=== PATIENT | female | born 1965 | race Caucasian/White ===

== ENCOUNTER 2016-06-22 23:34 | Observation (INO) | payer BC ==
[~2016-06-22] VITALS: Ht 167.6 cm; Wt 128.1 kg
[~2016-06-22 23:34] MED LIST: CELEBREX DPS200 MG PO; GLUCOPHAGE-DPS500 MG PO; GLUCOTROL DPS10 MG PO; INVOKANA300 MG PO; ISOPTIN SR180 MG PO; LANTUS100 UNITS/ SQ; LASIX DPS40 MG PO; LEVOTHYROXINE25 MCG PO; LUNESTA2 MG PO; NEXIUM40 MG PO; PAROXETINE HCL40 MG PO; PRAVASTATIN SOD40 MG PO; RIZATRIPTAN10 M1 SL; TOPROL XL DPS25 MG PO; ULTRAM DPS50 MG PO; ZANAFLEX4 MG PO; ZESTRIL DPS20 MG PO; [UNRECOGNIZED DRUG - OTHER] PO
--- NOTE | 2016-06-23 06:04 | ER ---
ADMIT: 06/23/2016 RM/LOC: 423 [facility] MR#: [id number] [address] [address] DANISHA DIAZ [address] [place] [address] Emergency Room Report SEX: F AGE: 51 : 1965 DATE: 06/23/2016 HISTORY OF PRESENT ILLNESS: The patient is a 51-year-old female with past medical history of hypertension; diabetes; SVT, status post ablation and hypothyroidism, who came to the ER with chief complaint of palpitation. The patient states that she was asleep when she had palpitation, which woke her up from sleep and palpitation continues in the ER. The patient states last year she had ablation, which resolved the SVT and palpitation attacks and since then, she had never experienced palpitation and she had no documented SVT or other arrhythmias. The patient states since then, she had multiple episodes of palpitation, but she never followed it up. PHYSICAL EXAMINATION: GENERAL: In the ER, the patient was in moderate distress. Alert and oriented to person, place, and time and talking in full sentences. VITAL SIGNS: Heart rate was 180 and O2 saturation was 99% on room air, blood pressure was holding in 145 over 80s. EKG was done, was suggestive of supraventricular tachycardia, the patient received a dose of adenosine, which could not convert the rhythm. The patient received the 2nd dose of adenosine 12 mg, which maintained the sinus rhythm with a rate of 85 to 90s. Cardiac enzymes were negative. Chest x-ray was noncontributory. The rest of the labs were noncontributory except for elevated TSH. The patient is already on Synthroid. Considering this is the 1st documented SVT after the ablation a year ago, the patient was admitted to the Family Medicine for further followups and treatments. Eugene Corbett MD/ simeon JOB #: [id number] CC: Tani Kinney MD, Attending Physician Tani Kinney MD, Family Physician
[2016-06-23] MEDS ORDERED: SYNTHROID DP0.175 MG PO (21:11)
[2016-06-23] MEDS ORDERED: GLUCOTROL DPS10 MG PO (21:11)
[2016-06-23] MEDS ORDERED: LANTUS100 UNITS/ SQ (21:11)
[2016-06-23] MEDS ORDERED: DEMADEX20 MG PO (21:11)
[2016-06-23] MEDS ORDERED: FARXIGA10 MG PO (21:11)
[2016-06-23] MEDS ORDERED: GLUCOPHAGE-DPS500 MG PO (21:11)
[2016-06-23] MEDS ORDERED: ISOPTIN SR180 MG PO (21:12)
[2016-06-23] MEDS ORDERED: PRAVACHOL40 MG PO (21:12)
[2016-06-23] MEDS ORDERED: ZESTRIL DPS20 MG PO (21:12)
[2016-06-23] MEDS ORDERED: FLEXERIL-DPS10 MG PO (21:12)
[2016-06-23] MEDS ORDERED: NEXIUM40 MG PO (21:12)
[2016-06-23] MEDS ORDERED: ASA CHILDREN'S81 MG PO (21:12)
[2016-06-23] MEDS ORDERED: PAXIL40 MG PO (21:12)
[2016-06-23] MEDS ORDERED: TYLENOL DPS325 MG PO (21:13)
[2016-06-23] MEDS ORDERED: VITAMIN D-32000 UNI1 PO (21:13)
[2016-06-23] MEDS ORDERED: TAMBOCOR DPS50 MG PO (21:13)
--- NOTE | 2016-06-28 15:07 | CO ---
ADMIT: 06/23/2016 RM/LOC: [facility] MR#: [id number] [address] [address] DANISHA DIAZ [address] [place] [address] Consultation SEX: F AGE: 51 : 1965 DATE OF CONSULTATION: 06/23/2016 ATTENDING PHYSICIAN: Tani Kinney CONSULTING PHYSICIAN: MD Joan Santacruz PA Student dictating for Dale Ramos MD HISTORY OF PRESENT ILLNESS: This is a pleasant 51-year-old female whom I had the opportunity to consult in Cardiology regarding SVT. The patient was seen in the ER last night at 11:30 p.m. because she was awoken from her sleep with heart palpitations, epigastric pressure, and sensation of heavy limbs. The patient has a history of SVT, so she tried vagal maneuvers by bearing down, but this provided little success. 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 The patient admits that her SVT had progressively been getting longer. It started Sunday night lasting from 10:15 p.m. to 5 a.m. in the morning. She admits that after her ablation a year ago, she had not any problems until this last January. The patient has a history of SVT, type 2 diabetes, hypertension, hypothyroidism, dyslipidemia, and heartburn. The patient admits that she was tested for sleep apnea 4 years ago. PAST MEDICAL HISTORY: SVT, type 2 diabetes, hypertension, hypothyroidism, dyslipidemia, DUB, and heartburn. PAST SURGICAL HISTORY: Back and neck fusion, knee arthroscopy, carpal tunnel, tubal ligation, and thyroidectomy. FAMILY HISTORY: Father had myocardial infarction and stroke at age 78. Her grandmother has significant heart disease. Her mom had some type cancer and her sister also had an unknown cancer and diabetes. SOCIAL HISTORY: The patient is and she has 3 children. She denies tobacco or alcohol usage. She admits to consuming 3 cups of caffeine per day. The patient has a sedentary lifestyle. ALLERGIES: CEPHALOSPORIN AND CEPHALEXIN. HOME MEDICATIONS: 1. Nitro drip 50 mg IV normal saline injection daily 10 mL IV. 2. Maalox 30 mL p.o. q.6 p.r.n. 3. Surfak 240 mg p.o. b.i.d. p.r.n. 4. Tylenol 325 mg p.o. q.4 p.r.n. 5. Nitrostat 0.4 mg sublingually p.r.n. 6. Adenocard 6 mg STK. 7. Lantus SoloSTAR 10 units t.i.d. 8. Forxiga 10 mg daily. 9. Glipizide 10 mg b.i.d. 10.Metformin 500 mg b.i.d. ADMIT: 06/23/2016 RM/LOC: [facility] MR#: [id number] [address] [address] DANISHA DIAZ [address] [place] [address] Consultation SEX: F AGE: 51 : 1965 11.Levothyroxine 150 mcg daily. 12.Verapamil daily. 13.Torsemide 20 mg daily. 14.Paroxetine 40 mg HS. 15.Lisinopril 20 mg HS. 16.Pravastatin 40 mg HS. 17.Cyclobenzaprine 10 mg HS. 18.Esomeprazole 40 mg HS. 19.Celecoxib 200 mg HS. 20.Baby aspirin p.o. 21.D3 of 2000 p.o. REVIEW OF SYSTEMS: GENERAL: Denies fatigue, fever, chills, sweats, rash, or weight loss. EYES: Denies double vision, blurred vision, cataracts, or glaucoma. ENT: Denies hearing loss or problems with nose, mouth or throat. PULMONARY: Denies cough, sputum production, asthma, emphysema or bronchitis. Denies snoring loudly, wakefulness at night, or fatigue upon awakening. GASTROINTESTINAL: Denies heartburn or difficulty swallowing. No change in bowel habits. Denies dark or bloody stools. No history of ulcers, hiatal hernia, or gallbladder or liver disease. GENITOURINARY: Denies dysuria, hematuria, nocturia, urinary tract infection, or kidney stones. Denies history of renal insufficiency or failure. MUSCULOSKELETAL: Denies history of arthritis or gout. Denies muscle or joint pains. ENDOCRINE: Denies history of thyroid dysfunction or diabetes. HEMATOLOGIC: Denies history of anemia, easy bruising, or cancer. NEUROLOGIC: Denies chronic headaches, dizziness, syncope, stroke, seizures or numbness or tingling. PSYCHIATRIC: Denies history of mental illness or feelings of depression. PHYSICAL EXAMINATION: Per Dr. Ramos. VITAL SIGNS: Temperature 97.9, pulse 86, respirations 16, blood pressure 125/79, weight 282 and is up 17 pounds since March 10, 2015. SKIN: [place], warm and dry. EYES: Sclerae clear. No xanthelasmas. ENT: Oral mucosa is pink and moist. No jugular venous distention or carotid bruits. CHEST: Respirations are even and unlabored. Lungs are clear to auscultation. HEART: Regular rate and rhythm. Normal S1, S2. No murmurs, rubs or gallops. ABDOMEN: Soft and nontender. MUSCULOSKELETAL: Gait is normal. EXTREMITIES: Peripheral pulses palpable. No clubbing, cyanosis or edema. PSYCHIATRIC: Alert and oriented. Mood and affect are appropriate. DIAGNOSTIC DATA: Blood glucose 119. Sodium 140, potassium 3.7, chloride 105, bicarb 24, BUN 15, creatinine 0.9, glucose 240. Troponin is less than 0.015. TSH is 24. Chest x-ray is negative. EKG showed a heart rate of 180 and is down ADMIT: 06/23/2016 RM/LOC: [facility] MR#: [id number] [address] [address] DANISHA DIAZ [address] [place] [address] Consultation SEX: F AGE: 51 : 1965 to 89. Last echocardiogram was January 01 with an ejection fraction of 65% with mild left ventricular hypertrophy and grade I diastolic dysfunction. IMPRESSION AND PLAN: Per Dr. Ramos. 1. Supraventricular tachycardia. Required 6 mg of adenosine but now on verapamil. Complex history with prior slow pathway ablation, but unable to completely ablate without causing complete heart block. At this time, we will increase the calcium channel jaden, verapamil and add flecainide. Episodes occur at night, therefore, we will do an overnight oximetry to evaluate her oxygen. 2. Hypertension. 3. Diabetes. 4. Hypothyroidism. Thank you for the cardiology consult. I have read and agreed with the documentation that has been completed regarding this visit. By signing this record, I attest that the documentation was completed in my physical presence and is an accurate record of the encounter. VIC Ibrahim Student / Dale Ramos MD / simeon JOB #: [id number] CC: Tani Kinney, Attending Physician Tani Kinney, Family Physician
--- NOTE | 2016-07-23 13:17 | HP ---
ADMIT: 06/23/2016 RM/LOC: 423 [facility] MR#: [id number] [address] [address] DANISHA DIAZ [address] [place] [address] History and Physical SEX: F AGE: 51 : 1965 DATE OF SERVICE: CHIEF COMPLAINT: Heart palpitations. HISTORY OF PRESENT ILLNESS: The patient is a pleasant 51-year-old female, who was awoke overnight with heart palpitations. She reports that she felt her heart racing which was accompanied by a gas-like epigastric discomfort and heaviness in her bilateral upper extremities. She reports she has had this constellation of symptoms in the past when she was found to be in SVT, however, she had ablation 1 year ago and has not had any significant episodes since. She denies any syncope or presyncope with these episodes. She did try vagal maneuvers without success to conversion. When she presented to the emergency room, she was found to be in SVT again with a heart rate in the 180s and was first treated with 6 mg IV adenosine which did not convert her, but then was given 12 mg of IV adenosine which converted her to sinus tachycardia. She does report that a few days ago, she had a few hour episode of similar symptoms that resolved spontaneously but has not had frequent episode since her ablation. She had seen [facility] as an outpatient about these recurrent episodes, but was told that she would likely need a pacemaker if she underwent another ablation so she was putting off the procedure. She denies any recent signs of illness such as fevers, chills, chest pain, shortness of breath, orthopnea, syncope, nausea, vomiting, or diarrhea. She does endorse bilateral lower extremity edema which is worse in the evening. She reports that she has measured her feet and ankles and reports 2 inch difference in circumference by the end of the day. PAST MEDICAL HISTORY: Type 2 diabetes mellitus, hypertension, hyperlipidemia, gastroesophageal reflux disease, hypothyroidism, status post thyroidectomy. PAST SURGICAL HISTORY: Back surgery in 2002, neck fusion 2011, knee arthroscopy in 1998, and carpal tunnel in 2000. Of note, patient was scheduled to have a hysterectomy in 2014 when SVT was found and that has not yet been completed. SOCIAL HISTORY: The patient is . She has 3 children. She denies any tobacco or alcohol use. FAMILY HISTORY: The patient denies any premature heart disease. She reports that her father did have an WA in his 70s and her grandmother also had heart problems. Mom and sister both had cancer, dad has stroke and her sister has diabetes as well. MEDICATIONS: 1. Lantus 10 units subcu twice daily. 2. Forxiga 10 mg p.o. daily. 3. Glipizide 10 mg p.o. b.i.d. 4. Metformin 500 mg p.o. b.i.d. 5. Levothyroxine 150 mcg p.o. daily. 6. Verapamil unknown strength p.o. daily. ADMIT: 06/23/2016 RM/LOC: 423 [facility] MR#: [id number] [facility] [address] [address] DANISHA DIAZ [address] [place] [address] History and Physical SEX: F AGE: 51 : 1965 7. Torsemide 20 mg p.o. daily. 8. Paroxetine 40 mg p.o. at bedtime. 9. Lisinopril 20 mg p.o. daily. 10.Pravastatin 40 mg p.o. at bedtime. 11.Cyclobenzaprine 10 mg p.o. at bedtime. 12.Esomeprazole 40 mg p.o. at bedtime. 13.Celecoxib 200 mg p.o. at bedtime. 14.Aspirin 81 mg p.o. daily. 15.Vitamin D3, 2000 International Units p.o. daily. ALLERGIES: CEPHALOSPORINS. REVIEW OF SYSTEMS: A 10-point review of systems was completed and negative except as noted in the HPI. PHYSICAL EXAMINATION: VITAL SIGNS: At presentation 127/77, 189, 18, and 96.0. GENERAL: Patient is awake, alert, oriented, in no acute distress. She appears comfortable. HEENT: Head is normocephalic and atraumatic. Pupils are equal, round, and reactive to light. Extraocular muscles are intact. Mucous membranes are moist. NECK: Supple. Thyroid is nonpalpable. No appreciable lymphadenopathy. HEART: Regular rate and rhythm without murmur, rub, or gallop. LUNGS: Clear to auscultation bilaterally without wheezes, rhonchi, or rales. ABDOMEN: Soft, nontender to palpation. Bowel sounds are present. EXTREMITIES: Without clubbing or cyanosis but with 1+ bilateral lower extremity edema. VASCULAR: Peripheral pulses intact. NEURO: The patient is alert and oriented. Cranial nerves II through XII are intact. She is moving all 4 extremities purposefully. PSYCH: Normal mood and affect. DIAGNOSTIC DATA: WBC 13.9, hemoglobin 12.5 platelets 290. Creatinine 0.9, potassium 3.7, blood glucose 240. TSH 24. Troponin less than 0.015. Chest x- ray normal. EKG at presentation SVT with a rate of 180. EKG after adenosine, sinus tachycardia rate of [address] or T-wave changes. ASSESSMENT: 1. Supraventricular tachycardia, now in normal sinus rhythm status post adenosine. 2. Hypothyroidism status post thyroidectomy. ADMIT: 06/23/2016 RM/LOC: 423 [facility] MR#: [id number] [facility] [address] [address] DANISHA DIAZ [facility] [place] [address] History and Physical SEX: F AGE: 51 : 1965 3. Type 2 diabetes mellitus. 4. Hypertension. 5. Hyperlipidemia. 6. Obesity. PLAN: The patient is maintaining normal sinus rhythm status post 2 doses of adenosine. We will ask [facility] to see her this morning and discuss the possibility of another ablation with likely pacemaker versus adjustment of her verapamil, optimizing her thyroid function and observation. The patient denies any current symptoms of infection or other underlying contributing factors. We will keep the patient on telemetry, to have a diabetic diet. Mikayla Caraballo MD Resident / Holden Yates MD / simeon JOB #: [id number] CC: Tani Kinney, Attending Physician Tani Kinney, Family Physician
== END 2016-06-23 16:05 | disposition home or self-care (01) ==
LOC: ER 23:34 → 4PCU 06-23 01:19
PROVIDERS: ADMIT Family Medicine
DX: I47.1 Supraventricular tachycardia (principal); E11.9 Type 2 diabetes mellitus without complications; Z79.4 Long term (current) use of insulin; I10 Essential (primary) hypertension; E78.5 Hyperlipidemia, unspecified; K21.9 Gastro-esophageal reflux disease without esophagitis; E03.9 Hypothyroidism, unspecified; Z98.890 Other specified postprocedural states; Z90.710 Acquired absence of both cervix and uterus; Z79.899 Other long term (current) drug therapy; Z79.82 Long term (current) use of aspirin; E66.9 Obesity, unspecified